=== PATIENT | male | born 1950 | race Caucasian/White ===

== ENCOUNTER 2024-05-04 11:31 | Inpatient (IN) | payer OTHER ==
[2024-05-04] VITALS (10 sets, daily range): BP systolic 127–152; BP diastolic 61–76; TEMP 96.6–98.6; O2SAT 94–97
[~2024-05-04] VITALS: Ht 170.2 cm; Wt 74.9 kg
[~2024-05-04 11:31] MED LIST: PANTOPRAZOLE 40MG VIAL IV SCH
[2024-05-04] MEDS ORDERED: NITR0.4S14 PO (11:52)
[2024-05-04] MEDS ORDERED: CLOP75TA2 PO (11:52)
[2024-05-04] MEDS ORDERED: ATOR80TA59 PO (11:52)
[2024-05-04] MEDS ORDERED: ATEN50TA2 PO (11:52)
[2024-05-04] MEDS ORDERED: LISI2.5T9 PO (11:52)
[2024-05-04 12:32] LABS: INR 0.94; PARTIAL THROMBOPLASTIN TIME 30.4 SECONDS (24.8-34.2); PROTHROMBIN TIME 12.9 SECONDS (12.5-14.5)
[2024-05-04] MEDS: ASPIRIN 81MG CHEW TABLET PO ONE (12:50)
[2024-05-04] MEDS ORDERED: HEPARIN SOD (PORCINE) 5000UNITS/ML 1ML VIAL/SYRINGE IV PRN (12:50)
[2024-05-04 12:52] LABS: LIPASE 40 U/L (12-53)
[2024-05-04] MEDS: NITROGLYCERIN 0.4MG SUBL TABLET SL PRN (12:52)
[2024-05-04 12:53] LABS: CPK CREATINE PHOSPHOKINASE 133 U/L (46-171)
[2024-05-04 12:54] LABS: ALBUMIN 3.3 G/DL (3.2-5.2); ALKALINE PHOSPHATASE 81 U/L (40-129); ALT/SGPT 26 U/L (7.0-40); AST/SGOT 20 U/L (<34); BILIRUBIN,DIRECT 0.1 MG/DL (<0.4); BILIRUBIN,TOTAL 0.4 MG/DL (0.3-1.2); BLOOD UREA NITROGEN 22 MG/DL (9-23); CALCIUM LEVEL 8.7 MG/DL (8.3-10.6); CARBON DIOXIDE LEVEL 27 MMOL/L (20-31); CHLORIDE LEVEL 104 MMOL/L (98-107); CK-MB VALUE MASS < 1.0 NG/ML (<3.6); CREATININE FOR GFR 0.94 MG/DL (0.70-1.30); GLOMERULAR FILTRATION RATE > 60.0 (>42); GLUCOSE, FASTING 93 MG/DL (74-106); MB/CK RELATIVE INDEX 0.75 (< OR =4); POTASSIUM SERUM 4.2 MMOL/L (3.5-5.1); SODIUM LEVEL 141 MMOL/L (136-145); TOTAL PROTEIN 6.6 G/DL (5.7-8.2)
[2024-05-04 12:56] LABS: FREE T4 1.51 NG/DL (0.89-1.76); THYROID STIMULATING HORMONE 1.699 uIU/ML (0.55-4.78)
[2024-05-04] MEDS: HEPARIN SOD (PORCINE) 5000UNITS/ML 1ML VIAL/SYRINGE IV ONE (12:59)
[2024-05-04] MEDS: HEPARIN DRIP 25,000 UNITS in IV 1 EA IV SCH (13:06)
[2024-05-04 13:08] LABS: BASO % 0.6 % (0.0-1.0); EOS # 0.2 10^3/uL (0.0-0.5); EOS % 2.4 % (0.0-3.0); HEMATOCRIT 29.7 % (42.0-52.0); HEMOGLOBIN 8.9 g/dl (13.5-17.5); LYMPH # 1.8 10^3/uL (1.5-5.0); LYMPH % 25.2 % (24.0-44.0); MEAN CORPUSCULAR HEMOGLOBIN 25.1 pg (27.0-33.0); MEAN CORPUSCULAR VOLUME 83.7 fl (80.0-96.0); NEUTROPHILS # 4.1 10^3/uL (1.5-8.5); NEUTROPHILS % 57.1 % (36.0-66.0); PLATELET COUNT, AUTOMATED 275 10^3/uL (150-450); RED BLOOD COUNT 3.55 10^6/uL (4.30-6.10); WHITE BLOOD COUNT 7.2 10^3/uL (4.0-10.0)
[2024-05-04 13:29] LABS: CK-MB VALUE MASS < 1.0 NG/ML (<3.6)
[2024-05-04 13:30] LABS: CPK CREATINE PHOSPHOKINASE 128 U/L (46-171); MB/CK RELATIVE INDEX 0.78 (< OR =4)
[2024-05-04] MEDS: PANTOPRAZOLE SODIUM 40 MG in D5W 50 ML IV SCH (13:30)
[2024-05-04] MEDS: PANTOPRAZOLE 40MG VIAL IV ONE (14:24)
[2024-05-04] MEDS ORDERED: THERTAB52 PO (14:34)
[2024-05-04] MEDS ORDERED: ASPI81TA26 PO (14:34)
[2024-05-04] MEDS ORDERED: HOME MED LIST COMPLETE! XX SCH (14:35)
[2024-05-04] MEDS: LISINOPRIL *2.5 MG* TAB PO SCH (21:00)
[2024-05-04] MEDS: ATORVASTATIN 20 MG TAB PO SCH (21:15)
[2024-05-04] MEDS: ASPIRIN 81MG ENTERIC TABLET PO SCH (21:15)
[2024-05-04] MEDS: atenoloL 50 MG TAB PO SCH (21:16)
[2024-05-04 23:46] LABS: HEMATOCRIT 35.6 % (42.0-52.0)
[2024-05-04 23:47] LABS: HEMOGLOBIN 11.6 g/dl (13.5-17.5)
[2024-05-05 04:52] VITALS: BP 112/57; TEMP 98; O2SAT 97
[2024-05-05 07:50] LABS: HEMATOCRIT 36.1 % (42.0-52.0); HEMOGLOBIN 11.5 g/dl (13.5-17.5); MEAN CORPUSCULAR HEMOGLOBIN 26.1 pg (27.0-33.0); MEAN CORPUSCULAR HGB CONC 31.9 g/dl (32.0-36.5); MEAN CORPUSCULAR VOLUME 81.9 fl (80.0-96.0); PLATELET COUNT, AUTOMATED 264 10^3/uL (150-450); RED BLOOD COUNT 4.41 10^6/uL (4.30-6.10)
[2024-05-05 08:00] VITALS: BP 127/66; TEMP 98.2; O2SAT 97
[2024-05-05 08:02] LABS: BLOOD UREA NITROGEN 17 MG/DL (9-23); CALCIUM LEVEL 8.3 MG/DL (8.3-10.6); CARBON DIOXIDE LEVEL 26 MMOL/L (20-31); CHLORIDE LEVEL 104 MMOL/L (98-107); CREATININE FOR GFR 1.06 MG/DL (0.70-1.30); GLOMERULAR FILTRATION RATE > 60.0 (>42); GLUCOSE, FASTING 81 MG/DL (74-106); POTASSIUM SERUM 4.4 MMOL/L (3.5-5.1); SODIUM LEVEL 142 MMOL/L (136-145)
[2024-05-05] MEDS ORDERED: PANTOPRAZOLE 40MG VIAL IV SCH (09:00)
[2024-05-05 12:00] VITALS: BP 131/62; TEMP 98.2; O2SAT 95
[2024-05-05] MEDS: PANTOPRAZOLE 40MG VIAL IV SCH (12:18)
[2024-05-05] MEDS ORDERED: ISOVUE-370 76% 100ML VIAL As Ordered ONE (12:44)
[2024-05-05 16:00] VITALS: BP 137/62; TEMP 98.3; O2SAT 94
[2024-05-05 20:00] VITALS: BP 134/63; TEMP 97.2; O2SAT 96
[2024-05-05 20:09] VITALS: BP 137/62
[2024-05-06] VITALS: BP 129/67; TEMP 97.2; O2SAT 94
[2024-05-06 04:00] VITALS: BP 132/63; TEMP 97.1; O2SAT 94
[2024-05-06 06:18] LABS: BASO % 0.5 % (0.0-1.0); EOS # 0.4 10^3/uL (0.0-0.5); EOS % 4.4 % (0.0-3.0); HEMATOCRIT 36.2 % (42.0-52.0); HEMOGLOBIN 11.6 g/dl (13.5-17.5); LYMPH # 1.8 10^3/uL (1.5-5.0); LYMPH % 23.2 % (24.0-44.0); MEAN CORPUSCULAR HEMOGLOBIN 26.3 pg (27.0-33.0); MEAN CORPUSCULAR VOLUME 82.1 fl (80.0-96.0); MONO % 12.9 % (2.0-8.0); NEUTROPHILS # 4.6 10^3/uL (1.5-8.5); NEUTROPHILS % 58.5 % (36.0-66.0); PLATELET COUNT, AUTOMATED 280 10^3/uL (150-450); RED BLOOD COUNT 4.41 10^6/uL (4.30-6.10); WHITE BLOOD COUNT 7.9 10^3/uL (4.0-10.0)
[2024-05-06 08:03] VITALS: BP 123/69; TEMP 97.6; O2SAT 94
[2024-05-06 09:30] LABS: BLOOD UREA NITROGEN 21 MG/DL (9-23); CALCIUM LEVEL 8.3 MG/DL (8.3-10.6); CARBON DIOXIDE LEVEL 28 MMOL/L (20-31); CHLORIDE LEVEL 105 MMOL/L (98-107); CREATININE FOR GFR 1.23 MG/DL (0.70-1.30); GLOMERULAR FILTRATION RATE > 60.0 (>42); GLUCOSE, FASTING 79 MG/DL (74-106); POTASSIUM SERUM 4.5 MMOL/L (3.5-5.1); SODIUM LEVEL 139 MMOL/L (136-145)
[2024-05-06] MEDS ORDERED: VENTAER INH (13:45)
[2024-05-06] MEDS ORDERED: PROT1TAB2 PO (13:52)
== END 2024-05-06 14:19 | disposition home or self-care (01) | DRG 812 ==
LOC: M ED 11:31 → M ED INP 14:45 → M PCU 23:04
PROVIDERS: ADMIT Internal Medicine; ATTEND Internal Medicine
PROC: 30233N1 Transfusion of Nonautologous Red Blood Cells into Peripheral Vein, Percutaneous Approach (ICD-10-PCS; principal; 2024-05-04)
PROC: B246ZZZ Ultrasonography of Right and Left Heart (ICD-10-PCS; 2024-05-05)
DX: D64.9 Anemia, unspecified (principal); I73.9 Peripheral vascular disease, unspecified; I25.10 Atherosclerotic heart disease of native coronary artery without angina pectoris; I10 Essential (primary) hypertension; Z95.5 Presence of coronary angioplasty implant and graft; Z95.828 Presence of other vascular implants and grafts; Z87.891 Personal history of nicotine dependence; Z85.51 Personal history of malignant neoplasm of bladder; Z79.82 Long term (current) use of aspirin; Z79.899 Other long term (current) drug therapy; Z88.0 Allergy status to penicillin; Z88.1 Allergy status to other antibiotic agents

== ENCOUNTER → 2024-06-21 | Outpatient (CLI) | payer OTHER ==
[~2024-06-21] MED LIST changes: +ASPI81TA26 PO; +ATEN50TA2 PO; +ATOR80TA59 PO; +CLOP75TA2 PO; +LISI2.5T9 PO; +NITR0.4S14 PO; -PANTOPRAZOLE 40MG VIAL IV SCH; +PROT1TAB2 PO; +THERTAB52 PO; +VENTAER INH
== END ==
LOC: M EKG 11:54
PROVIDERS: ATTEND Physician Assistant
DX: I49.3 Ventricular premature depolarization (principal)